=== PATIENT | female | born 1975 | race Asian ===

== ENCOUNTER 2019-10-19 03:41 | Emergency (ER) | payer SELFPAY ==
[2019-10-19] MEDS ORDERED: SODIUM CHLORIDE 0.9% 1000 ML 1,000 ML IV ONE (03:53)
[2019-10-19] MEDS ORDERED: LORazepam 2 MG/ML VIAL IV STA (03:55)
--- NOTE | 2019-10-19 03:56 | Event Note ---
ED Screening Note ED Screening Note: Mr. Fraire is a healthy 44 yo male who presents via EMS and police for paranoia and agitation. He told EMS "I am tripping." House mates mentioned that he did acid. He denies drug use. This initial assessment/diagnostic orders/clinical plan/treatment(s) is/are subject to change based on patients health status, clinical progression and re- assessment by fellow clinical providers in the ED. Further treatment and workup at subsequent clinical providers discretion. Patient/guardian urged not to elope from the ED as their condition may be serious if not clinically assessed and managed. Initial orders include: labs, IVF, ativan
[2019-10-19 04:17] VITALS: BP 161/100
== END 2019-10-19 09:03 | disposition left against medical advice (07) ==
LOC: ED 03:41
DX: R41.82 Altered mental status, unspecified (principal); Z53.21 Procedure and treatment not carried out due to patient leaving prior to being seen by health care provider
CPT/HCPCS: 93005; 93010; J2060; J7030